=== PATIENT | male | born 1955 | race Caucasian/White ===

== ENCOUNTER 2019-12-01 17:17 | Emergency (ER) | payer OTHER, SELFPAY ==
--- NOTE | ~2019-12-01 | XR_ITS ---
EXAMINATION: XR chest 2V 12/01/2019 17:56 INDICATION: Cough PROCEDURE: 2 view chest COMPARISON: Comparison to multiple prior studies sequentially, with oldest reviewed study dated 02/15. FINDINGS: The lungs are clear. The cardiomediastinal silhouette is within normal limits. There are no pleural effusions. There is no pneumothorax suspected. IMPRESSION: 1: NO ACUTE CARDIOPULMONARY DISEASE. Reviewed, dictated and finalized at location A.
[2019-12-01 17:24] VITALS: BP 117/84; PULSE 96; RESP 16; TEMP 36.6; O2SAT 97
--- NOTE | 2019-12-01 17:45 | ED.URI ---
HPI - URI/Sore Throat General Chief Complaint: Upper Respiratory Infection Stated Complaint: COUGH History of Present Illness HPI Narrative: This a 64-year-old male comes in complaining of coughing upper respiratory, patient states he knows he has bronchitis patient states he has had congestion been going on for the past week Related Data Home Medications Medication Instructions Recorded Confirmed dextroamphetamine-amphetamine 12/01/19 lisinopril-hydrochlorothiazide tablet 12/01/19 permethrin TOPICAL 12/01/19 Allergies Allergy/AdvReac Type Severity Reaction Status Date / Time No Known Allergies Allergy Unverified 12/16/16 14:51 Review of Systems Review of Systems: Narrative: CONSTITUTIONAL: Denies fever, chills, or sweats. EYES: Denies visual changes, redness, or discharge. ENT: Denies rhinorrhea, congestion, sore throat, or otalgia. CARDIOVASCULAR:Denies chest pain, palpitations, or edema. RESPIRATORY: Positive cough or dyspnea. GASTROINTESTINAL: Denies abdominal pain, nausea, vomiting, or diarrhea. GENITOURINARY: Denies dysuria or hematuria. SKIN:[Denies rash or itching. MUSCULOSKELETAL:Denies back pain, joint pain, or myalgia. NEUROLOGIC: Denies headache, numbness, or weakness. PSYCHIATRIC:Denies anxiety or depression PMFSH Comments At time as signature, I have reviewed and agree with nursing past medical, social, surgical and family history. Please see nursing chart for further information. There is no relevant family history pertinent to the presenting complaint. Exam Narrative: Exam Narrative: GENERAL:Well-appearing, well-nourished, and in no acute distress. HEAD:Normocephalic, atraumatic. EYES: PERRLA and EOMI. ENT: Nares clear, no rhinorrhea or epistaxis. Mucous membranes moist. NECK: Supple. CHEST: Clear to auscultation scattered wheezes on left side. No respiratory distress. HEART: Regular rate and rhythm. No murmur heard. Normal peripheral pulses. ABDOMEN: Soft, nontender, nondistended, normal active bowel sounds. EXTREMITIES: Normal range of motion. No edema. SKIN: Warm, dry, no rash. NEURO: No focal deficits. Alert and oriented x3. Chest x-ray is negative no pneumonia noted Course Vital Signs Vital signs: Vital Signs Temperature 98 F 12/01/19 17:24 Pulse Rate 96 12/01/19 17:24 Respiratory Rate 16 12/01/19 17:24 Blood Pressure 117/84 12/01/19 17:24 Pulse Oximetry 97 12/01/19 17:24 Temperature 98 F 12/01/19 17:24 Pulse Rate 96 12/01/19 17:24 Respiratory Rate 16 12/01/19 17:24 Blood Pressure 117/84 12/01/19 17:24 Pulse Oximetry 97 12/01/19 17:24 Discharge Plan Discharge Clinical Impression: Bronchitis Patient Disposition: Home, Self-Care Condition: Stable Instructions: Antibiotic Form, Upper Respiratory Infection in Children (ED) Additional Instructions: Viral illness may last between 7-12days; antibiotic is NOT recommended at this time. Recommend antihistamine such as Benadryl at night time and Claritin/Zyrtec/Sakshi during the day Also, recommend symptomatic treatment includes: rest, fluids, and increase humidity of the air at home. Recommend Acetaminophen or nonsteroidal anti-inflammatory agents (NSAIDs) as directed in the bottle to reduce fever and/pain/headache. Avoid smoking/second-hand smoke. Limit visits to areas with large crowds. Please schedule a follow-up visit with your personal physician for further evaluation and treatment within 3-5days. Including recheck and discussion of your blood pressure. If your symptoms persist, change or worsen significantly before you can contact your personal physician then please, without delay, go to the emergency department for further evaluation Prescriptions: New prednisone 20 mg tablet 20 mg PO BID Qty: 10 RF: 0 albuterol sulfate [ProAir HFA] 90 mcg/actuation HFA aerosol inhaler 2 puff INHALATION QID PRN (Reason: shortness of breath or wheezing) Qty: 8.5 RF: 0 cheryle
== END 2019-12-01 18:18 | disposition home or self-care (01) ==
PROVIDERS: Emergency Provider Nurse Practitioner Family
DX: J40 Bronchitis, not specified as acute or chronic (principal); I10 Essential (primary) hypertension
CPT/HCPCS: 71046; 99213; G0463

== ENCOUNTER 2022-11-22 13:48 | Emergency (ER) | payer MEDICARE, SELFPAY ==
--- NOTE | 2022-11-22 13:52 | ED.URI ---
HPI - URI/Sore Throat General Chief Complaint: Upper Respiratory Infection Stated Complaint: pos strep Time Seen by Provider: 11/22/22 14:10 Source: patient and RN notes reviewed Mode of arrival: ambulatory Limitations: no limitations History of Present Illness HPI Narrative: 67-year-old male presents with concern for 3 day history of sore throat, nasal congestion, postnasal drainage. He reports his grandson had strep last week. He reports denies taking any medications at home for symptoms. He denies fever, aches, chills, sweats MD elicited complaint: sore throat, rhinorrhea and nasal congestion Related Data Home Medications Medication Instructions Recorded Confirmed lisinopril 20 tablet 11/30/20 mg-hydrochlorothiazide 12.5 mg tablet Allergies Allergy/AdvReac Type Severity Reaction Status Date / Time No Known Allergies Allergy Unverified 11/22/22 13:52 Review of Systems Review of Systems: CONSTITUTIONAL: Denies malaise, chills, sweats, or fever. EYES: Denies visual changes, redness, or discharge. ENT: Reports rhinorrhea, congestion, and sore throat. CARDIOVASCULAR: Denies chest pain, palpitations, or edema. RESPIRATORY: Denies cough. Denies dyspnea. GASTROINTESTINAL: Denies abdominal pain, nausea, vomiting, diarrhea SKIN: Denies rash or itching. MUSCULOSKELETAL: Denies myalgia. NEUROLOGIC: Denies headache. All systems reviewed & are unremarkable except as noted in HPI and below PMFSH Comments At time of signature, agree with nursing past medical, surgical, social and family history. There is no relevant family history pertinent to the presenting complaint Exam Narrative: GENERAL: Well-appearing, well-nourished, and in no acute distress. HEAD: Normocephalic EYES: PERRLA, conjunctivae clear ENT: Nares clear, turbinates edematous and erythematous, clear discharge. Mucous membranes moist. TM pearly lyons with dull light reflex bilaterally; no tragal tenderness. Oropharynx not erythematous without lesions. Tonsils not enlarged and without exudate, no drooling, no hoarseness, no trismus, uvula midline. NECK: Supple. No lymphadenopathy CHEST: Clear to auscultation, breath sounds equal. No wheezing, rhonchi, rales, or stridor. No respiratory distress, speaks in full sentences. HEART: Regular rate and rhythm. No murmur heard. SKIN: Warm, dry, no rash. NEURO: Alert and oriented x3. PSYCH: Normal mood and affect Course Course Emergency Course: Patient is aware of diagnosis, understands and agrees to treatment plan. Anticipatory guidance given. Patient agrees to follow-up as directed and is aware of reasons to seek care at the emergency department. Portions of this record may have been created with voice recognition software Level of Care: Express Care Visit Vital Signs Vital signs: Reviewed. MDM - URI/Sore Throat MDM Narrative Medical decision making narrative: Differential diagnosis considered: Encinas virus, strep pharyngitis, allergic rhinitis, upper respiratory tract infection, sinusitis, rhinosinusitis, nasopharyngitis. viral pharyngitis, otitis media, otitis externa, pneumonia, bronchitis, viral cough syndrome, viral syndrome, and influenza. Exam findings show no acute concerns or changes; patient is non-toxic appearing and is in no distress. Patient is appropriate for outpatient treatment and follow-up. Lab Data Attestation: I reviewed the patient's lab results. Critical Care Time Critical Care Time Critical Care Time: No Discharge Plan Discharge Clinical Impression: Upper respiratory infection Patient Disposition: Home, Self-Care Condition: Stable Instructions: Upper Respiratory Infection (ED) Additional Instructions: Your rapid strep swab was negative today at [facility]. A throat culture will be sent to the laboratory for further testing. If the test is positive, you will receive a phone call within 48 hours and an appropriate antibiotic will be initiated at that time. Lenora
[2022-11-22 14:04] VITALS: BP 116/85; PULSE 108; RESP 16; TEMP 36.9; O2SAT 96
== END 2022-11-22 14:21 | disposition home or self-care (01) ==
PROVIDERS: Emergency Provider Nurse Practitioner
DX: J06.9 Acute upper respiratory infection, unspecified (principal)
CPT/HCPCS: 87081; 87880; 99213; G0463

== ENCOUNTER 2022-12-28 16:51 | Emergency (ER) | payer MEDICARE, SELFPAY ==
--- NOTE | 2022-12-28 16:55 | ED.URI ---
HPI - URI/Sore Throat General Chief Complaint: Upper Respiratory Infection Stated Complaint: SWELLING ON SIDE OF NECK Time Seen by Provider: 12/28/22 17:03 Source: patient and RN notes reviewed Mode of arrival: ambulatory Limitations: no limitations History of Present Illness HPI Narrative: 67-year-old male presents concern for a swollen lymph node in the left neck. Reports he had an upper respiratory infection about a month ago when he noticed the lymph node. Reports his symptoms have resolved with the lymph node is still there. Reports is nontender. He denies any fever, aches, chills, sweats, upper respiratory symptoms. He denies any redness, warmth to the area MD elicited complaint: other (Swollen lymph node) Related Data Home Medications Medication Instructions Recorded Confirmed lisinopril 20 tablet 12/01/19 mg-hydrochlorothiazide 12.5 mg tablet Allergies Allergy/AdvReac Type Severity Reaction Status Date / Time No Known Allergies Allergy Unverified 12/28/22 16:54 Review of Systems Review of Systems: CONSTITUTIONAL: Denies malaise, chills, sweats, or fever. EYES: Denies visual changes, redness, or discharge. ENT: Reports rhinorrhea, congestion, sinus pain, otalgia and sore throat. Reports swollen lymph node in the left neck, denies other swollen lymph nodes CARDIOVASCULAR: Denies chest pain, palpitations, or edema. RESPIRATORY: Reports cough. Denies dyspnea. GASTROINTESTINAL: Denies abdominal pain, nausea, vomiting, diarrhea SKIN: Denies rash or itching. MUSCULOSKELETAL: Denies myalgia. NEUROLOGIC: Denies headache. All systems reviewed & are unremarkable except as noted in HPI and below PMFSH Comments At time of signature, agree with nursing past medical, surgical, social and family history. There is no relevant family history pertinent to the presenting complaint Exam Narrative: GENERAL: Well-appearing, well-nourished, and in no acute distress. HEAD: Normocephalic EYES: PERRLA, conjunctivae clear ENT: Nares clear, turbinates edematous and erythematous, clear discharge. Mucous membranes moist. TM pearly lyons with dull light reflex bilaterally; no tragal tenderness. Oropharynx not erythematous without lesions. Tonsils not enlarged and without exudate, no drooling, no hoarseness, no trismus, uvula midline. NECK: Supple. Soft, mobile cervical lymph node noted that tenderness CHEST: Clear to auscultation, breath sounds equal. No wheezing, rhonchi, rales, or stridor. No respiratory distress, speaks in full sentences. HEART: Regular rate and rhythm. No murmur heard. SKIN: Warm, dry, no rash. NEURO: Alert and oriented x3. PSYCH: Normal mood and affect Course Course Emergency Course: Patient is aware of diagnosis, understands and agrees to treatment plan. Anticipatory guidance given. Patient agrees to follow-up as directed and is aware of reasons to seek care at the emergency department. Portions of this record may have been created with voice recognition software Level of Care: Express Care Visit Vital Signs Vital signs: Reviewed. MDM - URI/Sore Throat MDM Narrative Medical decision making narrative: Differential diagnosis considered: Encinas virus, strep pharyngitis, allergic rhinitis, upper respiratory tract infection, sinusitis, rhinosinusitis, nasopharyngitis. viral pharyngitis, otitis media, otitis externa, pneumonia, bronchitis, viral cough syndrome, viral syndrome, and influenza. Exam findings show no acute concerns or changes; patient is non-toxic appearing and is in no distress. Patient is appropriate for outpatient treatment and follow-up. Lab Data Attestation: I reviewed the patient's lab results. Critical Care Time Critical Care Time Critical Care Time: No Discharge Plan Discharge Clinical Impression: Lymphadenopathy of left cervical region Patient Disposition: Home, Self-Care Condition: Stable Instructions: Lymphadenopathy (ED) Additional Instructions: 1) Please
[2022-12-28 16:56] VITALS: BP 137/103; PULSE 102; RESP 20; TEMP 37.2; O2SAT 97
== END 2022-12-28 17:13 | disposition home or self-care (01) ==
PROVIDERS: Emergency Provider Nurse Practitioner
DX: R59.1 Generalized enlarged lymph nodes (principal); I10 Essential (primary) hypertension
CPT/HCPCS: 99211; G0463

== ENCOUNTER 2024-02-12 11:01 | Outpatient (CLI) | payer MEDICARE, SELFPAY ==
--- NOTE | ~2024-02-12 | CT_ITS ---
EXAMINATION: CT pelvis wo con DATE: 02/12/2024 11:25 INDICATION: Penile implant failure. TECHNIQUE: Computed tomography (CT) of the pelvis was performed without intravenous contrast. Automat ed exposure control and iterative reconstruction technique were employed. The dose-length product was 797.51 mGy-cm. COMPARISON: None FINDINGS: There is dilated loops of bowel. The appendix is normal. There is diverticulosis of the col on without evidence of diverticulitis. There are bilateral inguinal hernias containing fat. There is a penile prosthesis. There is a focus of gas in the reservoir. There is moderate lumbar spondylosis. IMPRESSION: 1. Unremarkable penile prosthesis. Reviewed, dictated and finalized at location E.
== END 2024-02-12 11:02 | disposition home or self-care (01) ==
LOC: ANHIMG 11:09
PROVIDERS: Visit Provider Urology
DX: T83.410A Breakdown (mechanical) of implanted penile prosthesis, initial encounter (principal)
CPT/HCPCS: 72192

== ENCOUNTER 2024-02-16 07:57 | Outpatient (CLI) | payer MEDICARE, SELFPAY ==
--- NOTE | 2024-02-16 08:45 | ECG_ITS ---
SEE SCANNED COPY FOR CONFIRMED REPORT MTDD
[2024-02-16 09:19] LABS: Hemoglobin A1C 5.6 % (<5.7)
== END 2024-02-16 07:58 | disposition home or self-care (01) ==
LOC: ANHSURGERY 08:02
PROVIDERS: Visit Provider Urology
DX: Z01.818 Encounter for other preprocedural examination (principal); I10 Essential (primary) hypertension; T83.410A Breakdown (mechanical) of implanted penile prosthesis, initial encounter; Y83.8 Other surgical procedures as the cause of abnormal reaction of the patient, or of later complication, without mention of misadventure at the time of the procedure
CPT/HCPCS: 36415; 83036; 87086; 93005

== ENCOUNTER 2024-02-23 00:29 | Day surgery (SDC) | payer MEDICARE, SELFPAY ==
--- NOTE | 2024-02-16 08:17 | PC.NURSE ---
Report to the Outpatient Waiting Room, entrance under the green pavilion located off [facility], at time 6:00 AM on date __02/23/24 . Planned Procedure Time: __7:30 AM . Time changes happen often and if your time is changed the preop area will call you the afternoon before. - You and your visitor will be asked to self-screen and do not enter if you have any COVID symptoms. - A mask is optional within the hospital at this time. Patients may have clear liquids (water, carbonated beverages, clear teas, apple juice) until 3 hours prior to surgery(4:30 AM) with a maximum of 20 ounces. - No food from midnight until time of surgery - Infants may have breast milk until 4 hours before surgery, infant formula 6 hours prior to surgery. - Children will be allowed to drink immediately following surgery. If applicable, please bring a bottle or sippy cup to assist with drinking. Juice, water, soda, and popsicles are readily available. For infants on formula, please bring formula the day of surgery. Pacifiers are allowed. Take the following medications with a SIP of water the morning of surgery: ___NONE DO NOT STOP ANY OF YOUR OTHER PRESCRIPTION MEDICATIONS PRIOR TO SURGERY ?EXCEPT THE FOLLOWING Medications to discontinue per physician NONE Please no make-up, nail djiboutian, hairspray, perfume, deodorant, or body powder the day of surgery. No jewelry (including any body piercings) or valuables the day of surgery, leave them at home. Please take a shower or bath the night before, or the morning of, surgery with an antibacterial soap. Wear comfortable, loose fitting clothing. Children are encouraged to wear pajamas. - Jewelry must be removed prior to entering the operating room. Rings and piercings that are not removed may be cut off. - The hospital will not accept responsibility for valuables. - Please leave all valuables, including medications, at home the day of surgery. If you are going home after surgery, a licensed electric pile driver operator must drive you home. - NO public transportation without another adult if you receive anesthesia. - We recommend that an adult stay with you for 24 hours following discharge. - We also recommend that you do not drive, make important decision, drink alcoholic beverages, or take any drugs that were not prescribed by your health care provider for at least 24 hours after your discharge time. Follow any additional instructions given to you from your surgeon. If you or anyone in your household have experienced Covid symptoms in the past week, please notify your surgeon or the nurse liaison at the phone number below for possible testing. VERBAL AND WRITTEN instructions given to PATIENT and asked if any additional questions and then verbalized understanding. Patient advised to call surgeon office or pre surgery nurse liaison [phone] if any additional questions.
[2024-02-16 08:36] VITALS: BP 141/99; PULSE 90; RESP 18; TEMP 36.6; O2SAT 98; BMI 34.0
[2024-02-23] VITALS (15 sets, daily range): BP systolic 107–157; BP diastolic 51–99; PULSE 90–104; RESP 13–20; TEMP 35.6–36.9; O2SAT 94–100
[2024-02-23] MEDS: LACTATED RINGERS 1,000 ML 30 ML IV CONT ×3 (06:15→12:01)
[2024-02-23] MEDS: VANCOMYCIN 1,750 MG/NS 500 ML BAG 250 MG IVPB (07:00)
--- NOTE | 2024-02-23 07:12 | P.PNAN_ITS ---
Anes - Initial Pre Proc Eval Procedure: Operation Date: 02/23/24 07:30 Proposed Procedures p Inflatable Penile Implant Exchange, Washout, Scrotal Exploration - Pancho Wilson MD Date/Time: 02/23/24 07:12 Surgeon: Pancho Wilson MD Pre Op Diagnosis: Penile Implant Failure Patient Data Age: 68 Gender: M Height: 1.83 m Weight: 113.6 kg Last Vital Signs Temp 97.8 F 02/16/24 08:36 Pulse 90 02/16/24 08:36 Resp 18 02/16/24 08:36 BP 141/99 H 02/16/24 08:36 Pulse Ox 98 02/16/24 08:36 O2 Del Method Room Air 02/16/24 08:36 Allergies Allergy/AdvReac Type Severity Reaction Status Date / Time No Known Allergies Allergy Unverified 02/16/24 08:07 Home Medications Medication Instructions Recorded Confirmed Type tamsulosin 0.4 mg capsule 0.4 mg PO HS 02/16/24 02/16/24 History Patient hx anesthesia problems: none Family hx anesthesia problems: none Results Review: All pre-operative results and documents have been reviewed as part of the pre- operative evaluation. [facility] Social History Social History Smoking packs per day: 1 Smoking cigarettes per day: 20.0 Years smoked: 15 Smoking pack-years: 15.00 Smoking status: Former smoker Tobacco type: cigarettes Smoking end date: 09/20/03 Alcohol intake: current Drinks per week: 1 Living arrangements: with family Spiritual care concerns: No Anes - Eval Final PreProcedure Day of Procedure 02/23/24 07:12 Patient weight: obese Heart: regular rate and rhythm Lungs: clear to auscultation Airway: Mallampati scale class III Neurological: alert and oriented Last oral intake: >/= 8 hours ASA classification: III Emergent: no Anesthetic plan: proceed Anesthesia type and monitoring: general LMA and standard monitoring Results Review: All pre-operative results and documents have been reviewed as part of the pre- operative evaluation. Informed Consent: The patient's anesthetic plan and its attendant risks and benefits were discussed with the patient/family/POA. Questions were solicited and answers provided to the satisfaction of the patient/family/POA.
--- NOTE | 2024-02-23 07:31 | WPDHPUPDATE1 ---
History and Physical Update Update Date/Time: 02/23/24 07:31 History and Physical has been reviewed, including an updated exam of the patient. There are NO changes in the patient's condition. Risks, benefits, and alternatives have been discussed and questions answered. Patient agrees to proceed with procedure.
[2024-02-23] MEDS: NACL 0.9% IRRIG BAG 1,000 ML, VANCOMYCIN HCL 1,000 MG, GENTAMICIN SULFATE INJ 80 MG IRRIGATION (08:35)
[2024-02-23] MEDS: NACL 0.9% IRRIG BAG 1,000 ML, ceFAZolin 1 GM, TOBRAMYCIN SULFATE INJ 40 MG IRRIGATION (08:36)
[2024-02-23] MEDS: BUPivacaine HCL 0.25% PF 30 ML VIAL INFILTRATE (08:37)
--- NOTE | 2024-02-23 11:54 | W.PM.PROC2 ---
Procedure Note - Detailed Date of Procedure 02/23/24 Pre-op Diagnosis Penile Implant Failure Post-op Diagnosis Same Procedure Performed -penile prosthesis exchange -scrotal exploration -antibiotic washout Surgeon Pancho Wilson MD Anesthesia General Findings -previous penile implant with injured bilateral cylinders leading to the device the imbedded into the corpora on both sides -removal of 15+6cm LGX device and replacement of 18+4cm CX device Description of Procedure Informed consent was obtained. The patient taken to the operating room and given preoperative IV antibiotics with vancomycin and gentamicin. Additionally the patient was taking oral levofloxacin at home. The patient was shaved, prepped and draped in the normal sterile fashion in the supine position was frog legged. The patient had a scrub with Betadine followed by ChloraPrep. We then made a 4 cm incision over the patient's pre- existing penoscrotal incision. We then dissected bluntly down to the corporal body into the pump. There was significant difficulty inflating the device. The pump was identified and freed from surrounding inflammatory tissue, and at this time we were able to inflate the device. As the device ended placed over 8 years ago and did not work as patient previously stated, we elected to proceed with exchange of the device. We took great care to identified the urethra and not injure it throughout the operation and again dissection to remove the cylinders. We then dissected down to the right corporal body. We opened the corpora and encountered severe inflammation and adherence of the cylinder to the inner corpora. We noted that there had been fracture of the external layer of implant resulting in the cylinder becoming imbedded into the corpora itself. We carefully the cylinder away from the corpora taking great care not to perforate the corpora or injure the surrounding structures. We were able to then remove the cylinder. We irrigated copiously and there was no injury to the corpora. An identical procedure was performed on the left side, again encountering that the outer layer of penile implant cylinder had ruptured, leading to the inner Decadron becoming imbedded into the corpora. We irrigated and confirmed no injury. The prosthesis was removed. At this point we then followed the tubing to the left inguinal canal. We then made a left lower quadrant incision and dissected down to the external oblique fascia. The implant reservoir was adherent, we therefore elected to incise the tubing at the level of the fascia to allow for the cylinder to remain in place. We then irrigated all spaces with multiple fluids with multiple irrigation solutions of Vancomycin/gentamicin and Tobramycin/Ancef. We copiously irrigated, changed our gloves. We then measured the right side 14.5 cm proximally and 7.5 cm distally and left side size 14.5 cm proximally and 7.5 cm distally and left side We placed an 18 cm + 4 cm rear tip CX device. The device sat nicely. A surrogate reservoir test was performed before and after closing the corporotomy, it sat nicely. We then again irrigated copiously. Through our left lower quadrant incision, we bluntly dissected down to the external oblique fascia. The fascia was opened. We then the rectus muscle and created a space superiorly in the sub rectus. We emptied the bladder prior to our incision. We then irrigated copiously. We pre-placed 0 Vicryl sutures. We placed the reservoir in the sub rectus space. We fill it with 100 mL and there was no back pressure. We then left 85 mL in the reservoir. Our pre-placed external oblique fascia sutures were closed. We then made a subdartos pouch in the midline for the pump placement. It sat nicely in the inferior scrotum. We then closed the hiatus with 3-0 Vicryl suture. The tubing was then brought up to the abdominal incision. Using the quick connect device, we connected the pump to the reservoir. We
[2024-02-23] MEDS: PROPOFOL IV EMULSION 200 MG/20 ML VIAL 50 MG IV PUSH (12:02)
[2024-02-23] MEDS: diphenhydrAMINE HCl INJ 50 MG/ML VIAL 25 MG IV PUSH (12:05)
[2024-02-23] MEDS: fentaNYL CITRATE INJ (*CRX) 100 MCG/2 ML VIAL 25 MCG IV PUSH ×2 (12:28→12:41)
[2024-02-23] MEDS: ALBUTEROL SULFATE NEB 2.5 MG/3 ML INH INHALATION (12:32)
--- NOTE | 2024-02-23 13:45 | ADMGEN ---
This patient, Arnaldo Villarreal, was admitted to [facility] Surg Room 316-02. Patient/family oriented to hospital policies and general routines including ID bracelet, bed and alarms, visiting hours, pain management, procedures, bathroom and other care routines, personal items, smoking policy, room service/diet, and visiting hours. Information on how to activate the Rapid Response Team has been discussed. Patient/Family are encouraged to report perceived risks to care and to ask questions if they do not understand what they are told or what they should do.
[2024-02-23] MEDS: HYDROcodone/acetaminophen (*CRX) 5-325 MG TABLET 1 TAB PO (14:12)
[2024-02-23] MEDS: DEXTROSE 5%/0.45% SOD CHL 1,000 ML 125 ML IV CONT (14:14)
[2024-02-23] MEDS: VANCOMYCIN 1,000 MG/NS 250 ML 1,000 MG/250 ML BAG 250 MG IVPB (18:21)
[2024-02-23] MEDS: MELATONIN 5 MG TABLET PO (20:44)
[2024-02-24] VITALS: BP 158/90; PULSE 87; RESP 16; TEMP 36.4; O2SAT 97
[2024-02-24 05:37] VITALS: BP 174/103; PULSE 80; RESP 18; TEMP 36.2; O2SAT 98
[2024-02-24] MEDS: VANCOMYCIN 1,000 MG/NS 250 ML 1,000 MG/250 ML BAG 250 MG IVPB (06:18)
[2024-02-24] MEDS: GENTAMICIN 80MG/SOD CHL 50 ML 80 MG/50 ML BAG 100 MG IVPB (06:18)
[2024-02-24] MEDS: HYDROcodone/acetaminophen (*CRX) 5-325 MG TABLET 1 TAB PO (06:22)
--- NOTE | 2024-02-24 08:08 | WPDANESPN ---
Anes - Prog Note Post-Op Date/Time: 02/24/24 08:08 Cardiovascular status: normal Respiratory status: normal Airway patency: baseline Mental status: baseline Post-Op hydration status: normal Vital Signs: Last Vital Signs Temp 36.2 C L 02/24/24 05:37 Pulse 80 02/24/24 05:37 Resp 18 02/24/24 05:37 BP 174/103 H 02/24/24 05:37 Pulse Ox 98 02/24/24 05:37 O2 Del Method Room Air 02/23/24 20:31 O2 Flow Rate 10 02/23/24 12:05 Pain Score (VAS): 310 I/O: Intake & Output 02/23/24 02/24/24 02/24/24 23:59 07:59 15:59 Intake Total 1010 1300 Output Total 2050 550 Balance -1040 750 Post-procedural complaints: none Patient Feedback: Patient satisfied with anesthetic care.
[2024-02-24] MEDS: levoFLOXacin 500 MG TABLET PO (08:32)
[2024-02-24] MEDS: ENOXAPARIN 30 MG/0.3 ML SYRINGE SUB-Q (08:32)
[2024-02-24 09:37] VITALS: BP 164/101; PULSE 81; RESP 18; TEMP 36.4; O2SAT 98
--- NOTE | 2024-02-24 12:18 | P.DS_ITS ---
DS: Admitting Diagnosis Discharge Date 02/24/2024 Admitting Diagnosis Erectile dysfunctional DS: Discharge Diagnosis Discharge Diagnosis (1) Erectile dysfunction: Code(s): N52.9 - Male erectile dysfunction, unspecified Status: Acute DS: Summary Hospital Course Hospital Course: Patient presented to [place] on 02/23/2024 for surgery. He had failure of penile implant and presented for penile prosthesis exchange, scrotal exploration, antibiotic washout done by Dr. Wilson. He tolerated this procedure well. His pain was well controlled. His Cox catheter was removed on postoperative day 1 and he was able to void without difficulty. He was a mbulating without difficulty. He was tolerating his diet. He felt comfortable with plans for discharge home. He will continue a course of Bactrim and was provided with [place] as needed for pain. Instructed to continue stool softeners. Written postoperative instructions were provided. He will follow-up with Dr. Wilson on 03/08/2024. Time Spent with Patient Time attestation: Total time spent providing and/or coordinating discharge services: 35 minutes Time spent: Greater than 30 minutes Exam Narrative: General: Awake, alert, comfortable, no acute distress HEENT: Normocephalic, atraumatic, sclerae anicteric Respiratory: Normal respiratory effort, no accessory muscle use Abdomen: Nondistended, soft, nontender : Normal penis and glans, normal scrotum without swelling Skin: Normal coloration, warm and dry Neurologic: No focal neuro deficits noted Psychiatric: Appropriate mood and affect, judgment and insight intact DS: Data Data Completed and Pending Pending studies at discharge: Pending at discharge 02/23/24 11:38 Surgical [PTH] Routine Discharge Plan Discharge Patient Disposition: Home, Self-Care Stand Alone Forms: General Discharge Instructions Follow-up/Referrals: Pancho Wilson MD [Physician] - Discharge Medications: Continued tamsulosin 0.4 mg capsule 0.4 mg PO HS
== END 2024-02-24 12:34 | disposition home or self-care (01) ==
LOC: ANHSURGERY 05:41 → ANH3MEDSUR 14:01
PROVIDERS: Visit Provider Urology
PROC: (CPT 54410; principal; 2024-02-23 07:30)
DX: T83.410A Breakdown (mechanical) of implanted penile prosthesis, initial encounter (principal); Y83.8 Other surgical procedures as the cause of abnormal reaction of the patient, or of later complication, without mention of misadventure at the time of the procedure; Z87.891 Personal history of nicotine dependence; E66.9 Obesity, unspecified; Z68.34 Body mass index [BMI] 34.0-34.9, adult
CPT/HCPCS: 54410; 88300; 94640; A9270; C1813; J0690; J1100; J1200; J1580; J1650; J2250; J2405; J2704; J3010; J3260; J3370; J7030; J7120

== ENCOUNTER 2024-04-20 12:52 | Emergency (ER) | payer MEDICARE, SELFPAY ==
[2024-04-20 13:08] VITALS: BP 134/96; PULSE 89; RESP 16; TEMP 36.6; O2SAT 100
--- NOTE | 2024-04-20 13:16 | ED.GENADULT ---
HPI - General Adult General Chief complaint: Recheck/Abnormal Lab/Rx Stated complaint: WANTS MED REFILL Time Seen by Provider: 04/20/24 13:18 Source: patient, RN notes reviewed and old records reviewed Mode of arrival: ambulatory Limitations: no limitations History of Present Illness HPI narrative: 68-year-old [facility] to [facility]ill [facility] lisinopril. Patient states that he has not taken his prescription lisinopril for over a year. Patient endorses that he quit taking his medication because he thought he could make lifestyle modifications and manage his blood pressure on his own. Patient states that he was not advised to discontinue his medication by his provider. Patient states that he relocated here from [place] and has not seen his old primary care provider in over a year. Patient states that he has an appointment with a new local PCP in 2 months. Patient states that he has dental work scheduled on May 03 and was advised by his dentist that his work would not be completed if he was hypertensive. Patient states that he has not attempted to call his old primary care provider regarding this issue. Patient denies chest pain, shortness of breath, pertinent medical history, allergies, recent illness, headache, palpitations, cough. Respirations even and nonlabored. Patient able to speak in complete sentences without difficulty. Patient in no acute distress. Related Data Home Medications Medication Instructions Recorded Confirmed tamsulosin 0.4 mg capsule 0.4 mg PO HS 02/16/24 02/16/24 Allergies Allergy/AdvReac Type Severity Reaction Status Date / Time No Known Allergies Allergy Verified 04/20/24 13:05 Review of Systems Review of Systems: All systems reviewed & are unremarkable except as noted in HPI and below Constitutional: Constitutional: Reports no additional constitutional complaints Eyes: Eyes: Reports no additional eye complaints ENT: Reports system reviewed and no additional complaints, except as documented Cardiovascular: Cardiovascular: Reports no additional cardiovascular complaints, Denies chest pain and Denies dyspnea Respiratory: Respiratory: Reports no additional respiratory complaints, Denies cough and Denies dyspnea Musculoskeletal: Musculoskeletal: Reports no additional musculoskeletal complaints Neurologic: Reports system reviewed and no additional complaints, except as documented Psychiatric: Psychiatric: Reports no additional psychiatric complaints PMFSH Social History Social History Smoking packs per day: 1 Smoking cigarettes per day: 20.0 Years smoked: 15 Smoking pack-years: 15.00 Smoking status: Former smoker Alcohol intake: current Drinks per week: 1 Substance use: never Do You Feel Safe in your Home?: No Lack of Transportation: No Lack of Food: Never True Current Housing: I Have Housing Concerned About Future Housing: No Difficulty Paying Gas/Electric Bills: No Difficulty Paying for Meds: No Currently Unemployed: No Education: Master's Degree or Higher Difficulty w/ Childcare or Family Care: No Living arrangements: with family Spiritual care concerns: No Comments At the time of my signature, I reviewed and agree with the nursing past medical, surgical, social, and family history. There is no relevant family history pertinent to the patient complaint. Exam Const: General: cooperative, healthy appearing, comfortable, no acute distress, alert and well nourished Nutritional Appearance: well nourished Orientation/consciousness: patient oriented x3 Limitations: no limitations HENMT: Head: normal to inspection Ears: external ears normal Face/Nose/Sinus: Normal external nose present, Normal nares present, normal facial exam, No erythema and No edema Face and sinus: normal facial exam, no erythema and no edema Mouth: Yes Normal oral and palatal mucosa present Eyes: General: appearance normal, both eyes and all related
== END 2024-04-20 13:45 | disposition home or self-care (01) ==
PROVIDERS: Emergency Provider Nurse Practitioner Family
DX: I10 Essential (primary) hypertension (principal); Z91.148 Patient's other noncompliance with medication regimen for other reason; Z87.891 Personal history of nicotine dependence
CPT/HCPCS: 99213; G0463

== ENCOUNTER 2024-07-25 00:28 | Day surgery (SDC) | payer MEDICARE, SELFPAY ==
[2024-07-18 08:48] VITALS: BMI 32.8
--- NOTE | 2024-07-24 13:59 | P.PNAN_ITS ---
Anes - Initial Pre Proc Eval Procedure: Operation Date: 07/25/24 10:00 Proposed Procedures p Screening Colonoscopy - Efren Holman MD Date/Time: 07/24/24 13:59 Surgeon: Efren Holman MD Pre Op Diagnosis: screening colon Patient Data Age: 68 Gender: M Height: 1.83 m Weight: 110 kg Allergies Allergy/AdvReac Type Severity Reaction Status Date / Time No Known Allergies Allergy Verified 07/25/24 09:31 Home Medications Medication Instructions Recorded Confirmed Type amlodipine 5 mg tablet 5 mg PO DAILY #90 tabs 06/19/24 07/25/24 Rx citalopram 10 mg tablet (Celexa) 10 mg PO DAILY #90 tabs 06/19/24 07/25/24 Rx Patient hx anesthesia problems: none Family hx anesthesia problems: none Results Review: All pre-operative results and documents have been reviewed as part of the pre- operative evaluation. [facility], [facility] Past Medical History Medical History (Updated 07/24/24 @ 14:00 by Corey Goldberg DO) Depression Erectile dysfunction Essential (primary) hypertension Seizure 2008 Surgical History Surgical History History of left knee surgery (~2019) left patellar tendon repair History of penile implant (~02/2024) Family History Family History Father Heart disease Mother Cerebrovascular accident Social History Social History Smoking packs per day: 1 Smoking cigarettes per day: 20.0 Years smoked: 15 Smoking pack-years: 15.00 Smoking status: Former smoker Smoking end date: 09/20/99 Alcohol intake: current Drinks per week: 1 Substance use: never Do You Feel Safe in your Home?: No Lack of Transportation: No Lack of Food: Never True Current Housing: I Have Housing Concerned About Future Housing: No Difficulty Paying Gas/Electric Bills: No Difficulty Paying for Meds: No Currently Unemployed: No Education: Master's Degree or Higher Difficulty w/ Childcare or Family Care: No Living arrangements: with family Spiritual care concerns: No Anes - Eval Final PreProcedure Day of Procedure 07/24/24 13:59 Patient weight: obese Heart: regular rate and rhythm Lungs: clear to auscultation Airway: Mallampati scale class III and special considerations poor dentition Neurological: alert and oriented Last oral intake: >/= 8 hours ASA classification: III Emergent: no Anesthetic plan: proceed Anesthesia type and monitoring: general GIVS and standard monitoring Results Review: All pre-operative results and documents have been reviewed as part of the pre- operative evaluation. Informed Consent: The patient's anesthetic plan and its attendant risks and benefits were discussed with the patient/family/POA. Questions were solicited and answers provided to the satisfaction of the patient/family/POA.
[2024-07-25 09:32] VITALS: BP 116/84; PULSE 96; RESP 18; TEMP 36.1; O2SAT 96; BMI 31.5
[2024-07-25] MEDS: LACTATED RINGERS 1,000 ML 150 ML IV CONT ×2 (09:41→11:40)
--- NOTE | 2024-07-25 10:57 | PM.IMHP ---
H&P: HPI History of Present Illness Date/Time: 07/25/24 10:57 Chief Complaint: Screening colonoscopy Narrative: This is the patient's 3rd colonoscopy. his last colonoscopy was 10 years ago. There are no GI symptoms and there is no family history of colorectal cancer. Review of Systems Review of Systems: All systems reviewed & are unremarkable except as noted in HPI and below PMFSH Past Medical History Medical History (Updated 07/25/24 @ 10:58 by Efren Holman MD) Depression Erectile dysfunction Essential (primary) hypertension Seizure 2008 Surgical History Surgical History History of left knee surgery (~2019) left patellar tendon repair History of penile implant (~02/2024) Family History Family History Father Heart disease Mother Cerebrovascular accident Social History Social History Smoking packs per day: 1 Smoking cigarettes per day: 20.0 Years smoked: 15 Smoking pack-years: 15.00 Smoking status: Former smoker Smoking end date: 09/20/99 Alcohol intake: current Drinks per week: 1 Substance use: never Do You Feel Safe in your Home?: No Lack of Transportation: No Lack of Food: Never True Current Housing: I Have Housing Concerned About Future Housing: No Difficulty Paying Gas/Electric Bills: No Difficulty Paying for Meds: No Currently Unemployed: No Education: Master's Degree or Higher Difficulty w/ Childcare or Family Care: No Living arrangements: with family Spiritual care concerns: No Meds Home Medications and Allergies Home Medications Medication Instructions Recorded Confirmed Type amlodipine 5 mg tablet 5 mg PO DAILY #90 tabs 06/19/24 07/25/24 Rx citalopram 10 mg tablet (Celexa) 10 mg PO DAILY #90 tabs 06/19/24 07/25/24 Rx Allergies Allergy/AdvReac Type Severity Reaction Status Date / Time No Known Allergies Allergy Verified 07/25/24 09:31 Vital Signs Vital Signs - 24 hr 07/25/24 09:32 Temperature 97 F L Pulse Rate 96 Respiratory Rate 18 Blood Pressure 116/84 Pulse Oximetry 96 Oxygen Delivery Room Air Exam Const: General: cooperative and healthy appearing Resp: Effort & Inspection: normal respiratory effort and able to speak in complete sentences Auscultation: clear to auscultation bilaterally Cardio: Rate: regular rate Rhythm: regular rhythm GI: Inspection: normal to inspection GI Palp: No No hepatosplenomegaly present Auscultation: normal bowel sounds Rectal Exam: deferred Skin: General skin exam: normal color Psych: Appearance: grossly normal Mental Status: mental status grossly normal Assessment and Plan Assessment and plan (1) Screening for malignant neoplasm of colon: Code(s): Z12.11 - Encounter for screening for malignant neoplasm of colon Status: Acute Plan The patient is deemed a good candidate for the procedure. Consent signed. Will proceed.
[2024-07-25] MEDS: SIMETHICONE ORAL SUSPENSION 20 MG/0.3 ML 30 ML BOTTLE 0.6 ML IRRIGATION (11:14)
[2024-07-25 11:29] VITALS: BP 110/74; PULSE 72; RESP 16; O2SAT 93
[2024-07-25 11:39] VITALS: BP 106/72; PULSE 64; RESP 20; O2SAT 98
[2024-07-25 11:49] VITALS: BP 122/68; PULSE 62; RESP 20; O2SAT 100
== END 2024-07-25 12:00 | disposition home or self-care (01) ==
PROVIDERS: PCP Family Medicine; Visit Provider Internal Medicine Gastroenterology
PROC: 0DJD8ZZ Inspection of Lower Intestinal Tract, Via Natural or Artificial Opening Endoscopic (ICD-10-PCS; CPT 45378; principal; 2024-07-25 10:00)
DX: Z12.11 Encounter for screening for malignant neoplasm of colon (principal); D12.2 Benign neoplasm of ascending colon; K64.0 First degree hemorrhoids; K57.30 Diverticulosis of large intestine without perforation or abscess without bleeding; I10 Essential (primary) hypertension; F32.A Depression, unspecified; N52.9 Male erectile dysfunction, unspecified; E66.9 Obesity, unspecified; Z68.31 Body mass index [BMI] 31.0-31.9, adult; Z98.890 Other specified postprocedural states; Z87.891 Personal history of nicotine dependence; Z82.49 Family history of ischemic heart disease and other diseases of the circulatory system
CPT/HCPCS: 45385; 88305; J2003; J2704; J7120

== ENCOUNTER 2024-11-29 10:51 | Outpatient (CLI) | payer MEDICARE, SELFPAY ==
--- OUTSIDE RECORDS SUMMARY | 2024-11-29 12:30 | XMS_ITS | Referral Summary ---
Author Organization [facility] Address [address] [place] [address] Care Team Providers Care Programmer Numerical Control Name Role Phone Storm Jurado MD Primary Care Provider [phone] Source Comments [facility],non-owned Affiliates and Associated Physician Practices is amultiple site organization consisting of ambulatory clinics and hospital sitesin [place], [place], [place] and [place]. This disclosure is being madepursuant to the Care Everywhere program and may not contain all information available regarding this patient. Last updated 18.[facility] Allergies No known active allergies Medications * Be aware that medications may not be up to date on this document. Alwaysverify current medications with the patient. Medication Sig Dispensed Refills Start Date End Date Status lisinopril-hydroCHLO ROthiazide (PRINZIDE; ZESTORETIC) 20-12.5 MG tabletIndications:Hy pertension Take 1 tablet by mouth once daily Reasons: High Blood Pressure Disorder Active ketorolac (TORADOL) 10 MG tablet Take 1 tablet by mouth every 6 hours 20 tablet 10/13/2018 Active amphetamine-dextroam phetamine (ADDERALL) 20 MG tablet 2018 Active permethrin (ELIMITE) 5 % cream Treat for one day. Massage into skin from neck to feet, leave on overnight (8-14h), wash off in morning. Repeat x1 in 7-10 days if needed. 60 g 12/14/2018 Active Active Problems Problem Noted Date Diagnosed Date Rupture of left patellar tendon 10/26/2018 Acute post-operative pain 10/13/2018 Acute knee pain 10/05/2018 Immunizations Name Administration Dates Next Due INFLUENZA VACCINE, HIGH-DOSE , QUADR. (FLUZONE HIGH-DOSE QUADRIVALENT; 65Y+), 0.7 ML (HD-IIV4) 10/11/2019 Social History Tobacco Use Types Packs/Day Years Used Date Smoking Tobacco: Former Smokeless Tobacco: Never Alcohol Use Standard Drinks/Week Comments Yes 0 (1 standard drink = 0.6 oz pur e alcohol) rarely Sex and Gender Information Value Date Recorded Sex Assigned at Not on file Gender Identity Not on file Sexual Orientation Not on file Last Filed Vital Signs Vital Sign Reading Time Taken Comments Blood Pressure 120/78 12/14/2018 11:05 AM CDT Pulse 99 12/14/2018 11:05 AM CDT Temperature 36.5 C (97.7 F) 12/14/2018 11:05 AM CDT Respiratory Rate 16 12/14/2018 11:05 AM CDT Oxygen Saturation 98% 12/14/2018 11:05 AM CDT Inhaled Oxygen Concentration 21% 10/13/2018 5 :10 PM UNDER PRESSER Weight 106.6 kg (235 lb) 03/08/2019 10:47 AM CDT Height 182.9 cm (6') 03/08/2019 10:47 AM CDT Body Mass Index 31.87 03/08/2019 10:47 AM CDT Functional Status Functional Status Response Date of Assess ment Is person deaf or have serious hearing difficult y? No 10/13/2018 Is person blind or have serious difficulty seein g? No 10/13/2018 Does person have serious dif ficulty walking/climbing stairs? Yes 10/13/2018 Does person have difficulty dressing/bathing? No 10/13/2018 Does person have difficulty doing errands alone? No 10/13/2018 Cognitive Status Response Date of Assessm ent Does person have difficulty concentrating/remembering/making decisions? No 10/13/2018 Plan of Treatment Not on file Medical Devices Implanted Type Area Reformatory Attendant Device Identifier Shelf Expiration Date Model / Serial / Lot Kit Arthsc Fx Internalbrace Fibertape Implanted:Qty: 1 on 10/13/2018 by Rodriguez Wallace MD at [facility] Left: Knee [employer] 06/19/2020 AR-5511-CP / / [id number] [place] Sut Radha Paiz Tigertape 4.75mm Implanted:Qty: 1 on 10/13/2018 by Rodriguez Wallace MD at [facility] Left: Knee [employer] 11/18/2019 AR-2324BCC TT / / [id number] Suture [place], Biocomposite Swivelock Implanted:Qty: 1 on 10/13/2018 by Rodriguez Wallace MD at [facility] Left: Knee [employer] 02/18/2020 AR-2324BCC T / / [id number] Description:WITH CLOSED PEEK EYELET AND FIBERTAPE LOOP Care Teams Programmer Numerical Control Relationship Specialty Start Date End Date Storm Jurado MD [facility] JUICE MITCHELL [address] [id number] [facility] - General 12/28/18
--- OUTSIDE RECORDS SUMMARY | 2024-11-29 12:30 | XMS_ITS | Referral Summary ---
Author Organization [facility] Address [address] [place] [id number] Care Team Providers Care Breakfast Host Name Role Phone Unknown, Notinfile Primary Care Provider Unavail able Allergies No known active allergies Medications No known medications Active Problems Problem Noted Date Diagnosed Date Mass of left side of neck 07/08/2023 Seizure 03/05/2014 Hypertension 03/05/2014 Social History Tobacco Use Types Packs/Day Years Used Date Smoking Tobacco: Never Smokeless Tobacco: Never Tobacco Cessation:Counseling Given: Not Answered Personal Safety Answer Date Recorded Have you ever been in or are you currently in a harmful physical or emotional relationship or is someone making you feel afraid or unsafe? Denies 09/08/2023 Sex and Gender Information Value Date Recorded Sex Assigned at Not on file Legal Sex Male 3:18 AM HOUSEMAN Gender Identity Male 07/06/2023 1:04 PM CDT Sexual Orientation Not on file Last Filed Vital Signs Vital Sign Reading Time Taken Comments Blood Pressure 143/104 09/08/2023 11:55 AM HOUSEMAN pt asymptomatic & agrees to check bp at home & contact pmd if continues to be elevated or if he becomes symptomatic. Pulse 77 09/08/2023 11:55 AM HOUSEMAN Temperature - - Respiratory Rate 126 09/08/2023 11:5 5 AM HOUSEMAN Oxygen Saturation 96% 09/08/2023 11: 55 AM HOUSEMAN Inhaled Oxygen Concentration - - Weight 113.4 kg (250 lb) 09/07/2023 2:3 4 PM HOUSEMAN Height 182.9 cm (6') 09/07/2023 2:34 PM HOUSEMAN Body Mass Index 33.91 09/07/2023 2:34 PM HOUSEMAN Plan of Treatment Not on file Insurance MEDICARE [facility] [place] [address] [place] [place] [address] [address] [facility] [place] [address] Care Teams Breakfast Host Relationship Specialty Start Date End Date Unknown, Notinfile PCP - General 07/06/23
--- OUTSIDE RECORDS SUMMARY | 2024-11-29 12:30 | XMS_ITS | Patient Health Summary ---
Author Organization [facility] Address [address] [place] [address] Care Team Providers Care Massage Coordinator Name Role Phone Storm Jurado MD Primary Care Provider [phone] Note from [facility],non-owned Affiliates and Associated Physician Practices is amultiple site organization consisting of ambulatory clinics and hospital sitesin [place], [place], [place] and [place]. This disclosure is being madepursuant to the Care Everywhere program and may not contain all information available regarding this patient. Last updated 18.[facility] Allergies No known active allergies Medications * Be aware that medications may not be up to date on this document. Alwaysverify current medications with the patient. * lisinopril-hydroCHLOROthiazide (PRINZIDE; ZESTORETIC) 20-12.5 MG tablet Take 1 tablet by mouth once daily Reasons: High Blood Pressure Disorder * ketorolac (TORADOL) 10 MG tablet(Started 10/13/2018) Take 1 tablet by mouth every 6 hours * amphetamine-dextroamphetamine (ADDERALL) 20 MG tablet(Started 2018) * permethrin (ELIMITE) 5 % cream(Started 12/14/2018) Treat for one day. Massage into skin from neck to feet, leave on overnight (8- 14h), wash off in morning. Repeat x1 in 7-10 days if needed. Active Problems Problem Noted Date Diagnosed Date Rupture of left patellar tendon 10/26/2018 Acute post-operative pain 10/13/2018 Acute knee pain 10/05/2018 Immunizations * INFLUENZA VACCINE, HIGH-DOSE, QUADR. (FLUZONE HIGH-DOSE QUADRIVALENT; 65Y+), 0.7 ML (HD-IIV4)(Given 10/11/2019) Social History Tobacco Use Types Packs/Day Years [...] Oxygen Concentration 21% 10/13/2018 5 :10 PM BOBBIN CLEANER Weight 106.6 kg (235 lb) 03/08/2019 10:47 AM CDT Height 182.9 cm (6') 03/08/2019 10:47 AM CDT Body Mass Index 31.87 03/08/2019 10:47 AM CDT Medical Devices Implanted Type Area Control Operator Device Identifier Shelf Expiration Date Model / Serial / Lot Kit Arthsc Fx Internalbrace Fibertape Implanted:Qty: 1 on 10/13/2018 by Rodriguez Wallace MD at [facility] Left: Knee [employer] 06/19/2020 AR-5511-CP / / [id number] [place] Sut Swivelock C Tigertape 4.75mm Implanted:Qty: 1 on 10/13/2018 by Rodriguez Wallace MD at [facility] Left: Knee [employer] 11/18/2019 AR-2324BCC TT / / [id number] Suture [place], Biocomposite Swivelock Implanted:Qty: 1 on 10/13/2018 by Rodriguez Wallace MD at [facility] Left: Knee [employer] 02/18/2020 AR-2324BCC T / / [id number] Description:WITH CLOSED PEEK EYELET AND FIBERTAPE LOOP Procedures * ENDOTRACHEAL TUBE NOTE(Performed 10/13/2018) * REPAIR PATELLAR TENDON(Performed 10/13/2018) Performed for Patellar tendon rupture, left, initial encounter * PERIPHERAL BLOCK(Performed 10/13/2018) * XR KNEE RIGHT 2VW OR LESS(Performed 10/05/2018) Performed for Acute knee pain, unspecified laterality * XR KNEE LEFT 4VW OR MORE(Performed 10/05/2018) Performed for Left knee pain, unspecified chronicity Results * XR KNEE RIGHT 2VW OR LESS (10/05/2018 12:03 PM BOBBIN CLEANER) Anatomical Region Laterality Modality Lower Extremity Radiographic Chey ging 10/05/2018 1:30 PM BOBBIN CLEANER Impressions 10/05/2018 4:11 PM BOBBIN CLEANER IMPRESSION: Unremarkable right knee radiographs. Dictated by Kobi Sigala MD (vice president quality). Dr. DARIA Duron M.D. have personally reviewed and interpreted this examination/study. This report was electronically signed by DARIA BONDS M.D. on 10/05/2018 4:11 PM . Narrative 10/05/2018 4:11 PM BOBBIN CLEANER EXAMINATION: XR KNEE RIGHT 2VW OR LESS HISTORY: lateral knee x-ray for comparison to left side COMPARISON: No prior study is available for comparison. FINDINGS: No acute fracture or dislocation is identified. The knee joint spaces are maintained in these weightbearing radiographs. Bone mineralization is normal. No soft tissue abnormalities are identified. No joint effusion is seen. Procedure Note Daria Bonds MD - 10/05/2018 EXAMINATION: XR KNEE RIGHT 2VW OR LESS HISTORY: lateral knee x-ray for comparison to left side COMPARISON: No prior study is available for comparison. FINDINGS: No acute fracture or dislocation is identified. The knee joint spacesare maintained in these weightbearing radiographs. Bone mineralization is normal. No soft tissue abnormalities are identified. No joint effusionis seen. IMPRESSION: Unremarkable right knee radiographs. Dictated by Kobi Sigala MD (vice president quality). Dr. DARIA Duron M.D. have personally reviewed and interpreted this examination/study. This report was electronically signed by DARIA BONDS M.D. on 10/05/2018 4:11 PM . Rodriguez Wallace MD DIAGNOSTIC IMAGING O RDER[facility]LES * XR KNEE LEFT 4VW OR MORE (10/05/2018 11:40 AM BOBBIN CLEANER) Anatomical Region Laterality Modality Lower Extremity Radiographic Chey ging 10/05/2018 11:4 8 AM BOBBIN CLEANER Impressions 10/05/2018 3:56 PM BOBBIN CLEANER IMPRESSION: 1. No acute osseous abnormality or evidence of arthritis. 2. Soft tissue swelling. Dictated by Kobi Sigala MD (vice president quality). Dr. DARIA Duron M.D. have personally reviewed and interpreted this examination/study. This report was electronically signed by DARIA BONDS M.D. on 10/05/2018 3:56 PM . Narrative 10/05/2018 3:56 PM BOBBIN CLEANER EXAMINATION: XR KNEE LEFT 4VW OR MORE HISTORY: Pain COMPARISON: No prior study is available for comparison. FINDINGS: No acute fracture or dislocation is identified. The joint spaces are maintained. Bone mineralization is normal. Soft tissue tissue edema is identified. No definite joint effusion Procedure Note Daria Bonds MD - 10/05/2018 EXAMINATION: XR KNEE LEFT 4VW OR MORE HISTORY: Pain COMPARISON: No prior study is available for comparison. FINDINGS: No acute fracture or dislocation is identified. The joint spaces are maintained. Bone mineralization is normal. Soft tissue tissue edema is identified. No definite joint effusion IMPRESSION: 1. No acute osseous abnormality or evidence of arthritis. 2. Soft tissue swelling. Dictated by Kobi Sigala MD (vice president quality). Dr. DARIA Duron M.D. have personally reviewed and interpreted this examination/study. This report was electronically signed by DARIA BONDS M.D. on 10/05/2018 3:56 PM . Rodriguez Wallace MD DIAGNOSTIC IMAGING O [facility] Care Teams Massage Coordinator Relationship Specialty Start Date End Date Storm Jurado MD [address] [place] [address] PCP - General 12/28/18
--- OUTSIDE RECORDS SUMMARY | 2024-11-29 12:30 | XMS_ITS | Clinical Summary ---
Author Organization [facility] Address [address] [place] [address] Care Team Providers Care Warp Placer Name Role Phone Storm Jurado MD Primary Care Provider Source Comments [facility],non-owned Affiliates and Associated Physician Practices is amultiple site organization consisting of ambulatory clinics and hospital sitesin [place], [place], [place] and [place]. This disclosure is being madepursuant to the Care Everywhere program and may not contain all information available regarding this patient. Last updated 18.[facility] Allergies No known active allergies Medications * [...] Oxygen Concentration 21% 10/13/2018 5 :10 PM ADVANCED MANUFACTURING TECHNICIAN Weight 106.6 kg (235 lb) 03/08/2019 10:47 AM CDT Height 182.9 cm (6') 03/08/2019 10:47 AM CDT Body Mass Index 31.87 03/08/2019 10:47 AM CDT Plan of Treatment Health Maintenance Due Date Last Done Comments COLOGUARD (AGES 45-75) - COL ON CA SCREENING [address] COLONOGRAPHY - COLON CA SCREENING 1954 FIT - COLON CA SCREENING 1954 FLEX SIG - COLON CA SCREENING 1954 LIPID TESTING 1954 MEDICARE AWV 12 MONTHS 1954 HEPATITIS C SCREENING 09/25/1972 DTAP/TDAP/TD VACCINES (1 - Tdap) 1973 PNEUMOCOCCAL VACCINE 50+ (1 of 1 - PCV) 2004 ZOSTER VACCINE (1 of 2) 2004 SCREENING FOR DIABETES 10/05/2018 AAA SCREENING 2019 COLONOSCOPY - COLON CA SCREENING 01/17/2024 01/17/20 14 Colorectal Cancer Screening 01/17/2024 COVID-19 VACCINE (1 - 2023-2 5 season) 2024 INFLUENZA VACCINE (#1) 2024 10/11/2019 DEPRESSION SCREENING 09/20/2024 Respiratory Syncytial Virus (RSV) Vaccine Pt: or over 60 yrs (1 - 1-dose 75+ series) 2029 HEPATITIS B VACCINE Aged Out No longe r eligible based on patient's age to complete this topic HIB VACCINE Aged Out No longer eligi ble based on patient's age to complete this topic HPV VACCINE Aged Out No longer eligi ble based on patient's age to complete this topic MENINGOCOCCAL (Group B) VACC INE SHARED DECISION-MAKING Aged Out No longer eligibl e based on patient's age to complete this topic MENINGOCOCCAL GROUPS A/C/Y/W VACCINE Aged Out No longer eligible b ased on patient's age to complete this topic Medical Devices Implanted Type Area Ncqa Specialist Device Identifier Shelf Expiration Date Model / Serial / Lot Kit Arthsc Fx Internalbrace Fibertape Implanted:Qty: 1 on 10/13/2018 by Rodriguez Wallace MD at [facility] Left: Knee [employer] 06/19/2020 AR-5511-CP / / [id number] Durant Sut Swivelock C Tigertape 4.75mm Implanted:Qty: 1 on 10/13/2018 by Rodriguez Wallace MD at [facility] Left: Knee [employer] 11/18/2019 AR-2324BCC TT / / [id number] Suture Durant, Biocomposite Swivelock Implanted:Qty: 1 on 10/13/2018 by Rodriguez Wallace MD at [facility] Left: Knee [employer] 02/18/2020 AR-2324BCC T / / [id number] Description:WITH CLOSED PEEK EYELET AND FIBERTAPE LOOP Care Teams Warp Placer Relationship Specialty Start Date End Date Storm Jurado MD [address] [place] [address] PCP - General 12/28/18
--- OUTSIDE RECORDS SUMMARY | 2024-11-29 12:30 | XMS_ITS | Clinical Summary ---
Author Organization [facility] Address [address] [place] [id number] Care Team Providers Care Ebd Special Education Teacher Name Role Phone Unknown, Notinfile Primary Care Provider Unavail able Allergies No known active allergies Medications No known medications Active Problems Problem Noted Date Diagnosed Date Mass of left side of neck 07/08/2023 Seizure 03/05/2014 Hypertension 03/05/2014 Surgical History Surgery Date Site/Laterality Comments KNEE SURGERY 09/20/2019 - 09/19/2020 Patellar Tendon Repair [place] FLUORO GUIDED INJECTION HIP LEFT 09/08/2023 Left Medical History Medical History Date Comments ADHD (attention deficit hyperactivity disorder) Hypertension Family History Medical History Relation Name Comments Heart disease Father Hypertension Father Hypertension Mother Relation Name Status Comments Father Mother Social History Tobacco Use Types Packs/Day Years [...] on file Legal Sex Male 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 Pulse 77 09/08/2023 11:55 AM HISTORICAL MANUSCRIPTS CURATOR Temperature - - Respiratory Rate 126 09/08/2023 11:5 5 AM HISTORICAL MANUSCRIPTS CURATOR Oxygen Saturation 96% 09/08/2023 11: 55 AM HISTORICAL MANUSCRIPTS CURATOR Inhaled Oxygen Concentration - - Weight 113.4 kg (250 lb) 09/07/2023 2:3 4 PM HISTORICAL MANUSCRIPTS CURATOR Height 182.9 cm (6') 09/07/2023 2:34 PM HISTORICAL MANUSCRIPTS CURATOR Body Mass Index 33.91 09/07/2023 2:34 PM HISTORICAL MANUSCRIPTS CURATOR Plan of Treatment Health Maintenance Due Date Last Done Comments Colon Cancer Screening-Colonoscopy 1954 Depression Screening 1954 Hepatitis C Screening 1954 DTaP/Tdap/Td Vaccine (1 - Tdap) 1965 Hepatitis B Screening 1972 Pneumococcal vaccine 65+ (1 of 1 - PCV) 2004 Zoster Vaccine (1 of 2) 2004 Abdominal Aortic Aneurysm (A AA) Screen 2019 Well Visit 65+ 2019 Covid-19 Vaccine (5 - 2023-2 5 season) 2024 05/17/2023, 08/28/2021, 12/07/2020, Additional history exists Influenza Vaccine (#1) 2024 , 06/28/2020, 10/11/2019 Fall Risk Assessment 09/08/2024 09/08/[address] [place] [address] MEDICARE [facility] Member Subscriber Plan / Payer (Ef fective 2022-Present) Name:Arnaldo Villarreal Relation to Subscriber:Self Name:Arnaldo Villarreal Payer ID:[id number] Group ID:Not on file Type:COMMERCIAL Address: [address] [place] [phone] MEDICARE [facility] Member Subscriber Plan / Payer ( fective 2022-Present) Name:Arnaldo Villarreal Relation to Subscriber:Self Name:Arnaldo Villarreal Payer ID:[id number] Group ID:Not on file Type:COMMERCIAL Address: [address] [place] [phone] Care Teams Ebd Special Education Teacher Relationship Specialty Start Date End Date Unknown, Notinfile PCP - General 07/06/23
[2024-11-29 13:26] LABS: Basophils Absolute Auto 0.1 K/mm3 (0.0-0.1); Basophils Percent Auto 0.8 % (0.2-1.2); Eosinophils Absolute Auto 0.1 K/mm3 (0-0.3); Eosinophils Percent Auto 1.5 % (0-4.4); Hematocrit 50.9 % (42.0-52.0); Hemoglobin 16.9 g/dL (14.0-18.0); Immature Granulocyte Absolute 0.06 K/mm3 (0.00-0.031); Immature Granulocyte Percent A 0.7 % (0-0.5); Lymphocytes Absolute Auto 1.49 K/mm3 (0.9-3.2); Lymphocytes Percent Auto 17.6 % (18.3-44.2); Mean Corpuscular HGB Conc 33.2 g/dl (32-36); Mean Corpuscular Hemoglobin 32.4 pg (26-34); Mean Corpuscular Volume 97.5 fl (80-100); Monocytes Absolute Auto 0.7 K/mm3 (0.1-0.6); Monocytes Percent Auto 8.6 % (2.6-8.5); Neutrophils Percent Auto 70.8 % (45.5-73.1); Platelet Count Result 291 k/mm3 (150-375); Red Blood Count 5.22 M/mm3 (4.6-6.20); Red Cell Distribution Width 12.8 % (11.5-14.5); White Blood Count 8.5 K/mm3 (4.5-10.0)
[2024-11-29 13:52] LABS: Vitamin D 25 Hydroxy 21.9 ng/mL
[2024-11-29 15:48] LABS: Alanine Aminotransferase 19 U/L (6-50); Albumin Level 4.4 g/dL (3.5-5.1); Alkaline Phosphatase 102 U/L (38-126); Anion Gap 10 mmol/L (4-12); Aspartate Amino Transferase 33 U/L (17-59); Bilirubin,Total 1.3 mg/dL (0.2-1.3); Blood Urea Nitrogen 17 mg/dL (9-20); Carbon Dioxide 26 mmol/L (22-30); Chloride 103 mmol/L (98-107); Cholesterol 202 mg/dL (0-200); Estimated Glomerular Filt Rate > 60; Glucose 104 mg/dL (65-110); HDL Direct 41 mg/dL; Potassium 4.6 mmol/L (3.4-5.0); Sodium 139 mmol/L (137-145); Triglycerides 106 mg/dL (<150)
[2024-11-29 16:01] LABS: LDL Cholesterol Direct 128 mg/dL
[2024-11-29 16:19] LABS: Prostate Specific Antigen 2.2 ng/mL (< OR = 4.0)
[2024-11-29 17:04] LABS: Hemoglobin A1C 5.6 % (<5.7)
== END 2024-11-29 10:52 | disposition home or self-care (01) ==
PROVIDERS: PCP Family Medicine; Visit Provider Family Medicine
DX: E78.5 Hyperlipidemia, unspecified (principal); E55.9 Vitamin D deficiency, unspecified; I10 Essential (primary) hypertension; R73.9 Hyperglycemia, unspecified; N52.9 Male erectile dysfunction, unspecified; E53.8 Deficiency of other specified B group vitamins; Z12.5 Encounter for screening for malignant neoplasm of prostate
CPT/HCPCS: 36415; 80053; 80061; 82306; 82607; 83036; 84153; 84443; 85025; G0103

== ENCOUNTER 2025-03-25 12:17 | Emergency (ER) | payer MEDICARE, SELFPAY ==
[2025-03-25 12:26] VITALS: BP 114/81; PULSE 76; RESP 16; TEMP 35.8; O2SAT 96
--- NOTE | 2025-03-25 12:36 | ED.SKABFB ---
HPI - Skin/Abscess/Foreign Bdy General Chief complaint: Skin/Abscess/Foreign Body Stated complaint: Skin Irritation Time Seen by Provider: 03/25/25 12:41 Source: patient Mode of arrival: ambulatory Limitations: no limitations History of Present Illness HPI narrative: 69 year male presented for a skin check. He states his grandson is currently being treated for a staph infection, and patient's daughter is requesting she evaluation before he encounters the grandson again. Patient currently denies any concern over skin lesions. He admits to having some small red bumps to the lower legs which she says are insect bites. He denies any Itching, pain or drainage to any of the bumps. Related Data Home Medications ?Medication ?Instructions ?Recorded ?Confirmed ?Last Taken ?Type amlodipine 5 mg tablet 5 mg PO DAILY 02/09/25 02/09/25 Unknown History Allergies Allergy/AdvReac Type Severity Reaction Status Date / Time No Known Allergies Allergy Verified 03/25/25 12:30 Review of Systems Review of Systems: CONSTITUTIONAL: Denies body aches, fever, chills, or sweats. EYES: Denies visual changes, redness, or discharge. ENT: Denies rhinorrhea, congestion CARDIOVASCULAR: Denies chest pain, palpitations, or edema. RESPIRATORY: Denies cough or dyspnea. GASTROINTESTINAL: Denies abdominal pain, nausea, vomiting, or diarrhea. SKIN: per HPI MUSCULOSKELETAL: Denies back pain, joint pain, or myalgia. NEUROLOGIC: Denies headache, numbness, tingling, or weakness. [facility] Past Medical History Medical History Seizure 2008 Essential (primary) hypertension Depression Erectile dysfunction Surgical History Surgical History History of penile implant (~02/2024) History of left knee surgery (~2019) left patellar tendon repair Family History Family History Father Heart disease Mother Cerebrovascular accident Social History Social History Smoking packs per day: 1 Smoking cigarettes per day: 20.0 Years smoked: 15 Smoking pack-years: 15.00 Smoking status: Former smoker Smoking end date: 09/20/99 Alcohol intake: current Drinks per week: 1 Substance use: never Do You Feel Safe in your Home?: No Lack of Transportation: No Lack of Food: Never True Current Housing: I Have Housing Concerned About Future Housing: No Difficulty Paying Gas/Electric Bills: No Difficulty Paying for Meds: No Currently Unemployed: No Education: Master's Degree or Higher Difficulty w/ Childcare or Family Care: No Living arrangements: with family Spiritual care concerns: No Comments At time of signature, I have reviewed and agree with nursing past medical, surgical, social and family history unless otherwise noted. Please see nursing chart for further information. There is no relevant family history pertinent to the presenting complaint Exam Narrative: GENERAL: Well-appearing HEAD: Normocephalic, atraumatic. EYES: conjunctivae clear, and EOMI. ENT: Mucous membranes moist. Oropharynx without edema, erythema or lesions. NECK: Supple. No lymphadenopathy CHEST: Clear to auscultation. HEART: Regular rate and rhythm. SKIN: Warm, dry. Few scattered erythematous round lesions to lower legs, no open or draining wounds, nontender. NEURO: Alert and oriented x3. Course Course Emergency Course: Patient is aware of diagnosis, understands and agrees to treatment plan. Anticipatory guidance given. Patient agrees to follow-up as directed and is aware of reasons to seek care at the emergency department. Portions of this record may have been created with voice recognition software Level of Care: Express Care Visit Vital Signs Vital signs: Vital Signs Temperature 96.4 F L 03/25/25 12:26 Pulse Rate 76 03/25/25 12:26 Respiratory Rate 16 03/25/25 12:26 Blood Pressure 114/81 03/25/25 12:26 Pulse Oximetry 96 03/25/25 12:26 Temperature 96.4 F L 03/25/25 12:26 Pulse Rate 76 03/25/25 12:26 Respiratory Rate 16 03/25/25 12:26 Blood Pressure 114/81 03/25/25 12:26 Pulse Oximetry 96 03/25/25 12:26 Reviewed MDM - Skin/Abscess/Foreign Bdy MDM Narrative Medical decision making narrative: Discussed physical exam findings; patient has no open wounds for wound culture and no indication for antibiotic at this time. Discussed risk of antibiotic use outweighing benefit at this time, as he has no open wounds. Patient verbalizes understanding. He states I am here by forcing just wanted to get checked. Advised supportive measures and signs/symptoms to go to the ER. Pt is appropriate for outpt treatment and f/u. Differential Diagnosis Differential diagnosis: Likely abscess of skin or subcutaneous tissue, viral exanthem, dermatophytosis, urticaria, herpes zoster, cellulitis, eczema, insect bites, impetigo and contact dermatitis Discharge Plan Discharge Clinical Impression: Visit for wound check Patient Disposition: Home Condition: Stable Instructions: Antibiotic Form, MRSA (Methicillin-Resistant Staphylococcus Aureus) (ED) Additional Instructions: Keep the skin clean and dry - cleanse with warm water and mild soap and allow to fully dry. Ok to apply neosporin to the site if needed No indication for wound culture or antibiotic at this time Watch for worsening symptoms including pain, redness, swelling, streaking, pus/drainage, fever. Go to the ER with any of these symptoms or concerns. Follow up with primary care provider as needed. Patient Language: Mozambican Prescriptions: No Action amlodipine 5 mg tablet 5 mg PO DAILY cholecalciferol (vitamin D3) 50 mcg (2,000 unit) capsule 50 mcg PO DAILY Qty: 90 1RF citalopram 20 mg tablet 20 mg PO DAILY Qty: 90 1RF Follow-up/Referrals: Orville Vallecillo MD [Primary Care Provider] - Time of Disposition: 12:47
== END 2025-03-25 12:49 | disposition home or self-care (01) ==
PROVIDERS: Emergency Provider Nurse Practitioner Family; PCP Family Medicine
DX: L98.9 Disorder of the skin and subcutaneous tissue, unspecified (principal); I10 Essential (primary) hypertension; Z87.891 Personal history of nicotine dependence
CPT/HCPCS: 99211; G0463

== ENCOUNTER 2025-08-21 08:58 | Outpatient (CLI) | payer MEDICARE, SELFPAY ==
--- OUTSIDE RECORDS SUMMARY | 2025-08-21 09:16 | XMS_ITS | Clinical Summary ---
Author Organization [facility] Address [facility] [address] [place] [address] Care Team Providers Care Qualitative Researcher Name Role Phone Unknown, Notinfile Primary Care Provider Unavail able Allergies No known active allergies Medications amLODIPine (NORVASC) 5 mg tablet Take 1 tablet (5 mg total) by mouth daily 06/19/2025 Active Active Problems Problem Noted Date Diagnosed Date Mass of left side of neck 07/08/2023 Seizure 03/05/2014 Hypertension 03/05/2014 Encounters Date Type Department Care Team Description 08/07/2025 10:14 AM SMALL ARMS ARTILLERY REPAIRER - 08/07/2025 11:59 PM SMALL ARMS ARTILLERY REPAIRER Hospital Encounter [facility] Sports Medicine [address] [place] [address] [place] [phone] Discharge Disposition: Discharge to home or self care 08/07/2025 10:00 AM SMALL ARMS ARTILLERY REPAIRER Office Visit [facility] [address] [place] [address] [address] [place] [address] John Tinsley MD Left hip pain (Primary Dx); Left knee pain, unspecified chronicity; Primary osteoarthritis of left hip; Primary osteoarthritis of left knee 08/07/2025 7:41 AM SMALL ARMS ARTILLERY REPAIRER - 08/07/2025 11:59 PM SMALL ARMS ARTILLERY REPAIRER Hospital Encounter [facility] Sports Medicine [address] [place] [address] [address] [id number] Discharge Disposition: Discharge to home or self care from Last 3 Months Surgical History Surgery Date Site/Laterality Comments KNEE [...] on file Legal Sex Male 3:18 AM SMALL ARMS ARTILLERY REPAIRER Gender Identity Male 07/06/2023 1:04 PM CDT Sexual Orientation Not on file Last Filed Vital Signs Vital Sign Reading Time Taken Comments Blood Pressure 129/85 08/07/2025 9:51 AM SMALL ARMS ARTILLERY REPAIRER Pulse 81 08/07/2025 9:51 AM SMALL ARMS ARTILLERY REPAIRER Temperature - - Respiratory Rate 126 09/08/2023 11:55 AM SMALL ARMS ARTILLERY REPAIRER Oxygen Saturation 96% 09/08/2023 11:55 AM SMALL ARMS ARTILLERY REPAIRER Inhaled Oxygen Concentration - - Weight 97.6 kg (215 lb 3.2 oz) 08/07/2025 9:51 A M SMALL ARMS ARTILLERY REPAIRER Height 182.9 cm (6') 08/07/2025 9:51 AM SMALL ARMS ARTILLERY REPAIRER Body Mass Index 29.19 08/07/2025 9:51 AM SMALL ARMS ARTILLERY REPAIRER Plan of Treatment Health Maintenance Due Date Last Done Comments Colon Cancer Screening-Colonoscopy 1954 Depression Screening 1954 Hepatitis C Screening 1954 DTaP/Tdap/Td Vaccine (1 - Tdap) 1965 Hepatitis B Screening 1972 Pneumococcal vaccine 65+ (1 of 1 - PCV) 2004 Zoster Vaccine (1 of 2) 2004 Well Visit 65+ 2019 Fall Risk Assessment 09/08/2024 09/08/2023 Covid-19 Vaccine (5 - 2024-2 6 season) 2025 05/17/2023, 08/28/2021, 12/07/2020, Additional history exists Influenza Vaccine (#1) 2025 4, 08/28/2021, 06/28/2020, Additional history exists Procedures Procedure Name Priority Date/Time Associated Diagnosis Comments XR KNEE LEFT 3 VIEWS Schedule Routine, Read Routine (OP Routine) 08/07/2025 10:16 AM SMALL ARMS ARTILLERY REPAIRER Left knee pain, unspecified chronicity XR HIP LEFT 2 OR 3 VIEWS Schedule Routine, Read Routine (OP Routine) 08/07/2025 9:51 AM SMALL ARMS ARTILLERY REPAIRER Left hip pain from Last 3 Months Results * XR Knee Left 3 Views (08/07/2025 10:16 AM SMALL ARMS ARTILLERY REPAIRER) Anatomical Region Laterality Modality Lower Extremities, Knee Left Digital Radiography Narrative 08/09/2025 2:38 PM SMALL ARMS ARTILLERY REPAIRER Mild bilateral knee osteoarthritis with patella [place] on the left side due to previous patellar tendon laceration and repair. John Tinsley MD [facility] XR PROCEDURES Final Result * XR Hip Left 2 or 3 Views (08/07/2025 9:51 AM SMALL ARMS ARTILLERY REPAIRER) Anatomical Region Laterality Modality Lower Extremities, Hip, Pelvis Left D igital Radiography Narrative 08/09/2025 2:37 PM SMALL ARMS ARTILLERY REPAIRER Severe advanced left hip osteoarthritis with [id number] contact, osteophyte formation, subluxation. John Tinsley MD [facility] XR PROCEDURES Final Result from Last [address] [place] [address] MEDICARE [facility] MEDICARE [facility] Care Teams Qualitative Researcher Relationship Specialty Start Date End Date Unknown, Notinfile PCP - General 07/06/23
[2025-08-21 12:57] LABS: Hematocrit 50.3 % (42.0-52.0); Hemoglobin 16.4 g/dL (14.0-18.0); Immature Granulocyte Percent A 1.2 % (0-0.5); Lymphocytes Absolute Auto 1.83 K/mm3 (0.9-3.2); Mean Corpuscular HGB Conc 32.6 g/dl (32-36); Mean Corpuscular Hemoglobin 32.6 pg (26-34); Mean Corpuscular Volume 100.0 fl (80-100); Nucleated Red Blood Cells Absolute Auto 0.000 K/mm3 (0.0-0.012); Nucleated Red Blood Cells Perc 0.0 % (0.0-0.2); Platelet Count Result 272 k/mm3 (150-375); Red Blood Count 5.03 M/mm3 (4.6-6.20); White Blood Count 8.6 K/mm3 (4.5-10.0)
[2025-08-21 13:09] LABS: Alanine Aminotransferase 15 U/L (6-50); Albumin Level 4.3 g/dL (3.5-5.1); Alkaline Phosphatase 92 U/L (38-126); Anion Gap 7 mmol/L (4-12); Aspartate Amino Transferase 44 U/L (17-59); Bilirubin,Total 1.3 mg/dL (0.2-1.3); Blood Urea Nitrogen 16 mg/dL (9-20); Calcium 9.1 mg/dL (8.4-10.2); Carbon Dioxide 30 mmol/L (22-30); Chloride 101 mmol/L (98-107); Estimated Glomerular Filt Rate > 60; Glucose 93 mg/dL (65-110); Magnesium 2.2 mg/dL (1.6-2.3); Potassium 4.6 mmol/L (3.4-5.0); Sodium 138 mmol/L (137-145); Total Protein 8.0 g/dL (6.3-8.2)
[2025-08-21 13:48] LABS: Thyroid Stimulating Hormone Reflex 1.930 uIU/mL (0.465-4.68)
[2025-08-21 14:03] LABS: Vitamin B12 378.0 pg/mL (239-931)
== END 2025-08-21 08:59 | disposition home or self-care (01) ==
LOC: ANHGOSHLAB 08:58
PROVIDERS: PCP Family Medicine; Visit Provider Nurse Practitioner Family
DX: I10 Essential (primary) hypertension (principal); E55.9 Vitamin D deficiency, unspecified
CPT/HCPCS: 36415; 80053; 82306; 82607; 83735; 84443; 85025